=== PATIENT | female | born 1995 | race Caucasian/White ===

== ENCOUNTER 2023-05-29 09:35 | Outpatient (RCR) | payer BC, SELFPAY ==
[2023-05-29 09:20] VITALS: BP 111/72; PULSE 80; RESP 16; TEMP 36.4; O2SAT 98
--- NOTE | 2023-05-29 09:51 | PC.NURSE ---
Patient is here for Celestone, she tolerated this well and denies any concerns or complaints. We will continue to monitor.
[2023-05-30 09:45] VITALS: BP 108/65; PULSE 55; RESP 18; TEMP 36.3; O2SAT 97
--- NOTE | 2023-05-30 09:55 | PC.NURSE ---
Patient is here for second injection of Celestone, she tolerated the first injection well without any side effects. Patient tolerated second injection and denies any concerns. She was discharged home.
== END 2023-06-24 23:59 | disposition home or self-care (01) ==
LOC: INF 09:35
PROVIDERS: Visit Provider Obstetrics & Gynecology
DX: O26.879 Cervical shortening, unspecified trimester (principal)
CPT/HCPCS: 96372; J0702

== ENCOUNTER 2023-06-11 20:34 | Outpatient (REF) | payer BC, SELFPAY | END 2023-06-11 20:35 | disposition home or self-care (01) | LOC: LAB 20:34 | PROVIDERS: Visit Provider Obstetrics & Gynecology | DX: Z34.93 Encounter for supervision of normal pregnancy, unspecified, third trimester (principal) | CPT/HCPCS: 87081 ==

== ENCOUNTER 2023-06-25 03:31 | Inpatient (IN) | payer BC, SELFPAY ==
[2023-06-25] VITALS (23 sets, daily range): BP systolic 95–126; BP diastolic 50–78; PULSE 68–142; RESP 16–18; TEMP 36.5–37.2; O2SAT 96
[2023-06-25 03:50] LABS: Bilirubin Urine NEGATIVE (NEGATIVE); Blood Urine SMALL (NEGATIVE); Clarity Urine CLEAR (CLEAR); Color Urine LT. YELLOW (YELLOW); Glucose Urine UA NEGATIVE (NEGATIVE); Ketones Urine NEGATIVE (NEGATIVE); Leukocyte Esterase Urine MODERATE (NEGATIVE); Nitrite Urine NEGATIVE (NEGATIVE); Protein Urine NEGATIVE (NEG/TRACE); Urobilinogen Urine 0.2 EU/dL (0.2-1.0)
[2023-06-25 03:52] LABS: Urine Microscopic Indicated YES
[2023-06-25 03:56] LABS: Bacteria Urine SMALL #/HPF (NONE SEEN); Cast Seen? NONE SEEN #/LPF (NONE SEEN); Crystals Seen? None Seen #/HPF (None Seen); Mucus Urine NONE SEEN (NONE SEEN); RBC Urine 0-2 #/HPF (0-2); Squamous Epithelial Cell Urine FEW #/LPF (NONE/RARE); Urine Culture Indicated YES
[2023-06-25 05:03] LABS: Amphetamine Screen Urine NEGATIVE (NEGATIVE); Barbiturates Screen Urine NEGATIVE (NEGATIVE); Benzodiazepines Screen Urine NEGATIVE (NEGATIVE); Buprenorphine Screen Urine NEGATIVE (NEGATIVE); Cannabinoid Screen Urine NEGATIVE (NEGATIVE); Cocaine Screen Urine NEGATIVE (NEGATIVE); Methadone Screen Urine NEGATIVE (NEGATIVE); Methamphetamines Screen Urine NEGATIVE (NEGATIVE); Opiate Screen Urine NEGATIVE (NEGATIVE); Oxycodone Screen Urine NEGATIVE (NEGATIVE); Phencyclidine Screen Urine NEGATIVE (NEGATIVE); Tricyclic Antidepressant Urine NEGATIVE (NEGATIVE)
[2023-06-25] MEDS: 0.9 % SODIUM CHLORIDE 1,000 ML 125 ML IV (05:08)
[2023-06-25 05:17] LABS: Hematocrit 36.1 % (36.0-48.0); Mean Corpuscular HGB Conc 33.2 g/dL (29.9-35.2); Mean Corpuscular Hemoglobin 28.2 pg (26.7-34.0); Mean Corpuscular Volume 84.9 fL (81.0-99.0); Mean Platelet Volume 11.3 fL (9.5-13.5); Platelet Count 152 10^3/uL (150-450); Red Blood Count 4.25 10^6/uL (4.20-5.40); Red Cell Distribution Width 14.3 % (11.0-15.0); White Blood Count 13.1 10^3/uL (4.0-11.0)
[2023-06-25] MEDS: LIDOCAINE HCL 1% 200 MG/20 ML MDV INJ (12:22)
[2023-06-25] MEDS: KETOROLAC TROMETHAMINE 30 MG/ML VIAL IVP (12:27)
--- NOTE | 2023-06-25 12:31 | PM.OBPRCVD ---
Procedure Intrapartal events: None Delivery augmentation: rupture of membranes Delivery monitor: external FHT and external uterine Route of delivery: Laceration description: perineal - 1st degree Delivery repair: Vicryl Estimated blood loss (mL): 275 Anesthesia type: None Disposition: floor Delivery date: 06/25/23 Gender: female presentation: vertex Placental delivery description: Spontaneous cord description: 3 Vessels
[2023-06-25] MEDS: IBUPROFEN 600 MG TABLET PO (19:16)
[2023-06-25 20:16] LABS: Glucometer 141 mg/dL (74-106)
[2023-06-26] VITALS (16 sets, daily range): BP systolic 96–102; BP diastolic 56–67; PULSE 90–141; RESP 16–18; TEMP 36.4–38.3; O2SAT 96–97
[2023-06-26] MEDS: IBUPROFEN 600 MG TABLET PO ×4 (02:11→20:37)
[2023-06-26 05:57] LABS: Hematocrit 35.9 % (36.0-48.0); Mean Corpuscular HGB Conc 33.4 g/dL (29.9-35.2); Mean Corpuscular Hemoglobin 28.4 pg (26.7-34.0); Mean Corpuscular Volume 85.1 fL (81.0-99.0); Mean Platelet Volume 10.7 fL (9.5-13.5); Platelet Count 152 10^3/uL (150-450); Red Blood Count 4.22 10^6/uL (4.20-5.40); Red Cell Distribution Width 14.3 % (11.0-15.0); White Blood Count 28.8 10^3/uL (4.0-11.0)
[2023-06-26 06:31] LABS: Segmented Neut Absolute Manual 19.58 10^3/uL (1.4-6.5)
[2023-06-26 06:33] LABS: Band Neutrophils Absolute 4.6 10^3/uL (0.0-0.3)
[2023-06-26 06:34] LABS: Lymphocytes Absolute Manual 1.72 10^3/uL (1.20-3.80); Monocytes Absolute Manual 2.01 10^3/uL (0.30-0.80)
[2023-06-26 06:41] LABS: Metamyelocytes Absolute Manual 0.86
--- NOTE | 2023-06-26 07:19 | W.PC.ACHO ---
Registration Status: ADM IN Primary Language: Guamanian Preferred Language: Guamanian Active Medications 0705- Report given to Richard Mejia RN Generic Name Dose Route Start Last Admin Trade Name Jwq PRN Reason Stop Dose Admin Acetaminophen 650 mg 06/25/23 12:29 Acetaminophen 325 Mg Tablet PO Q6H PRN Mild Pain Al Hydroxide/Mg Hydroxide 2,400 mg 06/25/23 12:29 Magnesium Hydroxide 2,400 Mg/10 Ml Oral.Susp PO Q6H PRN Dyspepsia Benzocaine/Menthol 1 applic 06/25/23 12:29 06/25/23 19:15 Benzocaine/Menthol 85 Gram Bottle TOPICAL 1 applic ONCE PRN Administration Pain Carboprost Tromethamine 250 mcg 06/25/23 04:30 Carboprost Tromethamine 250 Mcg/Ml 1 Ml Vial IM 06/26/23 13:00 Q15M PRN Bleeding Docusate Sodium 100 mg 06/26/23 09:00 Docusate Sodium 100 Mg Capsule PO BID DENA Sodium Chloride 1,000 mls @ 125 mls/hr 06/25/23 04:30 06/25/23 20:31 Sodium Chloride 0.9% 1,000 Ml IV Not Given .Q8H DENA Ibuprofen 600 mg 06/25/23 12:29 06/26/23 02:11 Ibuprofen 600 Mg Tablet PO 600 mg Q6H PRN Administration Moderate Pain Lidocaine 1 ml 06/25/23 12:53 06/25/23 12:22 Lidocaine Hcl 1% 200 Mg/20 Ml Mdv INJ 1 ml DIRECTED PRN Administration Pain Methylergonovine Maleate 0.2 mg 06/25/23 04:30 Methylergonovine Maleate 0.2 Mg/Ml Ampule IM 06/26/23 13:00 ONCE PRN Uterine Contractility/Contract Methylergonovine Maleate 0.2 mg 06/25/23 04:30 Methylergonovine Maleate 0.2 Mg Tablet PO 06/26/23 13:00 Q4H PRN Uterine Contractility/Contract Misoprostol 600 mcg 06/25/23 04:30 Misoprostol 100 Mcg Tablet PO ONCE PRN Uterine Bleeding Misoprostol 800 mcg 06/25/23 04:30 Misoprostol 100 Mcg Tablet SL 06/26/23 13:00 ONCE PRN Uterine Bleeding Misoprostol 1,000 mcg 06/25/23 04:30 Misoprostol 100 Mcg Tablet [place] 06/26/23 13:00 ONCE PRN Uterine Bleeding Naloxone HCl 0.4 mg 06/25/23 12:29 Naloxone Hcl 0.4 Mg/Ml Vial IV ONCE PRN Opiate Reversal Ondansetron HCl 4 mg 06/25/23 04:30 Ondansetron Pf 4 Mg/2 Ml Vial IV Q6H PRN Nausea And Vomiting Ondansetron HCl 4 mg 06/25/23 04:30 Ondansetron 4 Mg Rapdis Tablet SL Q6H PRN Nausea And Vomiting Senna 17.2 mg 06/25/23 20:00 Sennosides 8.6 Mg Tablet PO QHS PRN Constipation Simethicone 80 mg 06/25/23 12:29 Simethicone 80 Mg Tab.Chew PO QID PRN Abdominal Distention Temazepam 15 mg 06/25/23 20:00 Temazepam 15 Mg Capsule PO BEDTIME PRN Sleep Witch Philomena/Glycerin 1 each 06/25/23 12:29 Glycerin/Witch Philomena 1 Each Jar TOPICAL ONCE PRN Pain Diet Category Date Time Status Regular Consistency Diet Diet 06/25/23 Dinner Active Respiratory Lung sounds [Throughout] clear Lung sounds [Throughout] clear Lung sounds [Throughout] clear Pulse Oximetry 96 Pulse Oximetry 96 Oxygen Delivery Method Room Air Oxygen Delivery Method Room Air Oxygen Delivery Method Room Air Oxygen Delivery Method Room Air Cardiology Heart Sounds Strong,Regular Heart Sounds Strong,Regular Heart Sounds Strong Bowels Bowel Pattern No Bowel Movement Bowel Pattern No Bowel Movement Renal Bladder Pattern Continent Bladder Pattern Continent Bladder Pattern Continent Bladder Pattern Continent
--- NOTE | 2023-06-26 07:41 | P.OBPN_ITS ---
OB - PN: Subj Subjective Patient comments: no complaints [place] status: doing well Exam Constitutional Vital Signs, click to edit/add: Last Vital Signs Temp 98.9 F 06/25/23 23:25 Pulse 113 H 06/26/23 07:29 Resp 17 06/26/23 07:35 BP 101/67 06/26/23 07:29 Pulse Ox 96 06/25/23 19:30 O2 Del Method Room Air 06/25/23 23:25 Documenting provider has reviewed patient's vital signs: yes Common normals: no apparent distress Respiratory Common normals: clear to auscultation bilaterally Cardio Common normals: regular rate and regular rhythm GI Common normals: Normal to inspection, nondistended, normoactive bowel sounds present Extremity Common normals: no clubbing, cyanosis or edema and no calf tenderness Results Labs Labs: Short CBC 06/26/23 Range/Units 05:50 WBC 28.8 H (4.0-11.0) 10^3/uL Hgb 12.0 (12.0-16.0) g/dL Hct 35.9 L (36.0-48.0) % Plt Count 152 (150-450) 10^3/uL OB - PN: A/P Assessment and Plan (1) Tachycardia: Plan tachycardia-improving, will obtain ekg for completion Plan - Vaginal Delivery day: 1 Plan: routine care, discharge home and follow up 6 weeks Time Spent with Patient Time: Total time spent is greater than 50% in coordination of care (as documented) at patient's floor/unit and/or counseling patient: Total time spent with greater than 50% in coordination of care (as documented) at patient's floor/unit and/or counseling patient: less than 15 minutes
--- NOTE | 2023-06-26 07:44 | ECG_ITS ---
[facility] Test Date: 2023-06-26 Pat Name: ALYCIA CALVIN Department: Room: 2531 Gender: Female Divorce Attorney: : 1995 Requested By: ANNA HERNANDEZ Order Number: [id number] Reading MD: JOANIE ABBOTT Measurements Intervals [place] Rate: 114 P: 59 CT: 156 QRS: 66 QRSD: 81 T: 50 QT: 288 QTc: 398 Interpretive Statements SINUS TACHYCARDIA POSSIBLE RIGHT VENTRICULAR CONDUCTION DELAY [RSR (QR) IN V1/V2] ABNORMAL RHYTHM ECG No previous ECG available for comparison Electronically Signed On 06-27-2023 5:33:33 EDT by JOANIE ABBOTT
[2023-06-26] MEDS: DOCUSATE SODIUM 100 MG CAPSULE PO ×2 (08:29→20:36)
[2023-06-26] MEDS: AMPICILLIN SODIUM 2,000 MG in 0.9 % SODIUM CHLORIDE 100 ML 200 MG IV (12:27)
[2023-06-26] MEDS: 0.9 % SODIUM CHLORIDE 1,000 ML 125 ML IV ×3 (12:29→20:00)
[2023-06-26] MEDS: CLINDAMYCIN PHOSPHATE/D5W 900 MG/50 ML PIGGYBACK 100 MG IV (13:02)
[2023-06-26] MEDS: ACETAMINOPHEN 325 MG TABLET 650 MG PO (16:15)
[2023-06-26] MEDS: AMPICILLIN SODIUM 1,000 MG in 0.9 % SODIUM CHLORIDE 50 ML 100 MG IV (16:15)
--- NOTE | 2023-06-26 17:31 | W.PC.ACHO ---
Registration Status: ADM IN Primary Language: Indonesian Preferred Language: Indonesian report received from Fermin Wallace, RN Active Medications Generic Name Dose Route Start Last Admin Trade Name Freq PRN Reason Stop Dose Admin Acetaminophen 650 mg 06/25/23 12:29 06/26/23 16:15 Acetaminophen 325 Mg Tablet PO 650 mg Q6H PRN Administration Mild Pain Al Hydroxide/Mg Hydroxide 2,400 mg 06/25/23 12:29 Magnesium Hydroxide 2,400 Mg/10 Ml Oral.Susp PO Q6H PRN Dyspepsia Benzocaine/Menthol 1 applic 06/25/23 12:29 06/25/23 19:15 Benzocaine/Menthol 85 Gram Bottle TOPICAL 1 applic ONCE PRN Administration Pain Docusate Sodium 100 mg 06/26/23 09:00 06/26/23 08:29 Docusate Sodium 100 Mg Capsule PO 100 mg BID DENA Administration Sodium Chloride 1,000 mls @ 125 mls/hr 06/25/23 04:30 06/26/23 12:31 Sodium Chloride 0.9% 1,000 Ml IV 125 mls/hr .Q8H DENA Administration Ampicillin 1,000 mg/ Sodium 50 mls @ 100 mls/hr 06/26/23 16:00 06/26/23 16:15 Chloride IV 100 mls/hr Q4H DENA 100 mls/hr Administration Ibuprofen 600 mg 06/25/23 12:29 06/26/23 14:09 Ibuprofen 600 Mg Tablet PO 600 mg Q6H PRN Administration Moderate Pain Ondansetron HCl 4 mg 06/25/23 04:30 Ondansetron Pf 4 Mg/2 Ml Vial IV Q6H PRN Nausea And Vomiting Ondansetron HCl 4 mg 06/25/23 04:30 Ondansetron 4 Mg Rapdis Tablet SL Q6H PRN Nausea And Vomiting Senna 17.2 mg 06/25/23 20:00 Sennosides 8.6 Mg Tablet PO QHS PRN Constipation Simethicone 80 mg 06/25/23 12:29 Simethicone 80 Mg Tab.Chew PO QID PRN Abdominal Distention Temazepam 15 mg 06/25/23 20:00 Temazepam 15 Mg Capsule PO BEDTIME PRN Sleep Witch Philomena/Glycerin 1 each 06/25/23 12:29 Glycerin/Witch Philomena 1 Each Jar TOPICAL ONCE PRN Pain Consults Category Date Time Status Consult to Hospitalist Routine Cons 06/26/23 Ordered IV Insertion/Site Date of IV Line Insertion [20g 06/26/23 left Distal Hand] IV Insertion Time [20g left 12:15 Distal Hand] Respiratory Lung sounds [Throughout] clear Lung sounds [Throughout] clear Lung sounds [Throughout] clear Lung sounds [Throughout] clear Pulse Oximetry 96 Pulse Oximetry 96 Oxygen Delivery Method Room Air Oxygen Delivery Method Room Air Oxygen Delivery Method Room Air Oxygen Delivery Method Room Air Oxygen Delivery Method Room Air Cardiology Heart Sounds Regular Heart Sounds Strong Heart Sounds Strong,Regular Heart Sounds Strong,Regular Bowels Bowel Pattern No Bowel Movement Bowel Pattern No Bowel Movement Renal Bladder Pattern Continent Bladder Pattern Continent Bladder Pattern Continent
--- NOTE | 2023-06-26 18:35 | PC.NURSE ---
patient denies and aches or chills. patient states, I was just telling my that I am feeling better.
--- NOTE | 2023-06-26 19:03 | PM.PN ---
Progress Note: Subjective Subjective Interval history: Patient without specific complaint although she can feel her heart racing. Had significant elevation in white blood cell count and tachycardia with low-grade fever. Asked to evaluate on consultation Exam Constitutional Vital Signs, click to edit/add: Last Vital Signs Temp 97.8 F 06/26/23 18:36 Pulse 95 H 06/26/23 18:36 Resp 18 06/26/23 18:36 BP 102/60 06/26/23 18:36 Pulse Ox 96 06/25/23 19:30 O2 Del Method Room Air 06/26/23 18:36 Chest Common normals: inspection of chest normal Respiratory Common normals: normal respiratory effort and clear to auscultation bilaterally Cardio Common normals: regular rate and regular rhythm Heart sounds: murmur (2/6) systolic GI Common normals: Normal to inspection, nondistended, normoactive bowel sounds present (Not more tender than would expect) Progress Note: Objective Labs Labs: Short CBC 06/26/23 Range/Units 05:50 WBC 28.8 H (4.0-11.0) 10^3/uL Hgb 12.0 (12.0-16.0) g/dL Hct 35.9 L (36.0-48.0) % Plt Count 152 (150-450) 10^3/uL Progress Note: A&P Assessment and Plan (1) Tachycardia: Assessment and Plan: Tachycardia with fever, significant leukocytosis and bandemia-agree with initial antibiotic choice, will change ampicillin to Rocephin for broader gram-negative coverage, continue clindamycin for anaerobic coverage, check blood cultures x2, IV fluid bolus, and maintenance fluids. Reevaluate in a.m.
[2023-06-26] MEDS: 0.9 % SODIUM CHLORIDE 1,000 ML 999 ML IV (19:08)
--- NOTE | 2023-06-26 19:18 | W.PC.ACHO ---
Registration Status: ADM IN Primary Language: Norwegian Preferred Language: Norwegian report given to Stephanie Ramsey RN Active Medications Generic Name Dose Route Start Last Admin Trade Name Freq PRN Reason Stop Dose Admin Acetaminophen 650 mg 06/25/23 12:29 06/26/23 16:15 Acetaminophen 325 Mg Tablet PO 650 mg Q6H PRN Administration Mild Pain Al Hydroxide/Mg Hydroxide 2,400 mg 06/25/23 12:29 Magnesium Hydroxide 2,400 Mg/10 Ml Oral.Susp PO Q6H PRN Dyspepsia Benzocaine/Menthol 1 applic 06/25/23 12:29 06/25/23 19:15 Benzocaine/Menthol 85 Gram Bottle TOPICAL 1 applic ONCE PRN Administration Pain Docusate Sodium 100 mg 06/26/23 09:00 06/26/23 08:29 Docusate Sodium 100 Mg Capsule PO 100 mg BID DENA Administration Sodium Chloride 1,000 mls @ 125 mls/hr 06/25/23 04:30 06/26/23 12:31 Sodium Chloride 0.9% 1,000 Ml IV 125 mls/hr .Q8H DENA Administration Ceftriaxone Sodium 1,000 mg/ 50 mls @ 100 mls/hr 06/26/23 19:00 Sodium Chloride IV Q24H DENA Clindamycin Phosphate/Dextrose 300 mg in 50 mls @ 100 mls/hr 06/26/23 19:15 Cleocin Phosphate/D5w 300 Mg/50 Ml Piggyback IV Q6H DENA Ibuprofen 600 mg 06/25/23 12:29 06/26/23 14:09 Ibuprofen 600 Mg Tablet PO 600 mg Q6H PRN Administration Moderate Pain Ondansetron HCl 4 mg 06/25/23 04:30 Ondansetron Pf 4 Mg/2 Ml Vial IV Q6H PRN Nausea And Vomiting Ondansetron HCl 4 mg 06/25/23 04:30 Ondansetron 4 Mg Rapdis Tablet SL Q6H PRN Nausea And Vomiting Ondansetron HCl 4 mg 06/26/23 18:58 Ondansetron Pf 4 Mg/2 Ml Vial IV Q4H PRN Nausea Senna 17.2 mg 06/25/23 20:00 Sennosides 8.6 Mg Tablet PO QHS PRN Constipation Simethicone 80 mg 06/25/23 12:29 Simethicone 80 Mg Tab.Chew PO QID PRN Abdominal Distention Temazepam 15 mg 06/25/23 20:00 Temazepam 15 Mg Capsule PO BEDTIME PRN Sleep Witch [place]omena/Glycerin 1 each 06/25/23 12:29 Glycerin/Witch Philomena 1 Each Jar TOPICAL ONCE PRN Pain Consults Category Date Time Status Consult to Hospitalist Routine Cons 06/26/23 Ordered IV Insertion/Site Date of IV Line Insertion [20g 06/26/23 left Distal Hand] IV Insertion Time [20g left 12:15 Distal Hand] Respiratory Lung sounds [Throughout] clear Lung sounds [Throughout] clear Lung sounds [Throughout] clear Lung sounds [Throughout] clear Pulse Oximetry 96 Pulse Oximetry 96 Oxygen Delivery Method Room Air Oxygen Delivery Method Room Air Oxygen Delivery Method Room Air Oxygen Delivery Method Room Air Oxygen Delivery Method Room Air Oxygen Delivery Method Room Air Cardiology Heart Sounds Regular Heart Sounds Strong Heart Sounds Strong,Regular Heart Sounds Strong,Regular Bowels Bowel Pattern No Bowel Movement Bowel Pattern No Bowel Movement Renal Bladder Pattern Continent Bladder Pattern Continent Bladder Pattern Continent
[2023-06-26] MEDS: CLINDAMYCIN PHOSPHATE/D5W 300 MG/50 ML PIGGYBACK 100 MG IV (19:51)
[2023-06-26 20:05] LABS: Basophils Absolute Auto 0.1 10^3/uL (0.0-0.1); Basophils Percent Auto 0.4 % (0.2-2.0); Hematocrit 33.2 % (36.0-48.0); Hemoglobin 10.9 g/dL (12.0-16.0); Immature Granulocytes Abs Auto 0.41 10^3/uL (0.00-0.03); Immature Granulocytes Pct Auto 1.8 % (0.0-0.5); Lymphocytes Absolute Auto 0.8 10^3/uL (1.2-3.8); Lymphocytes Percent Auto 3.7 % (20.5-60.0); Mean Corpuscular HGB Conc 32.8 g/dL (29.9-35.2); Mean Corpuscular Hemoglobin 28.1 pg (26.7-34.0); Mean Corpuscular Volume 85.6 fL (81.0-99.0); Mean Platelet Volume 10.6 fL (9.5-13.5); Monocytes Absolute Auto 0.9 10^3/uL (0.3-0.8); Monocytes Percent Auto 3.9 % (1.7-12.0); Neutrophils Absolute Auto 20.2 10^3/uL (1.4-6.5); Neutrophils Percent Auto 90.2 % (43.0-75.0); Platelet Count 158 10^3/uL (150-450); Red Blood Count 3.88 10^6/uL (4.20-5.40); Red Cell Distribution Width 14.6 % (11.0-15.0); White Blood Count 22.4 10^3/uL (4.0-11.0)
[2023-06-26] MEDS: CEFTRIAXONE 1,000 MG in 0.9 % SODIUM CHLORIDE 50 ML 100 MG IV (20:36)
[2023-06-27 00:20] VITALS: BP 91/61; PULSE 72; RESP 14; TEMP 36.4; O2SAT 100
[2023-06-27] MEDS: IBUPROFEN 600 MG TABLET PO (02:02)
[2023-06-27] MEDS: CLINDAMYCIN PHOSPHATE/D5W 300 MG/50 ML PIGGYBACK 100 MG IV ×2 (02:03→09:05)
[2023-06-27] MEDS: 0.9 % SODIUM CHLORIDE 1,000 ML 125 ML IV (03:54)
[2023-06-27 03:56] VITALS: BP 95/60; PULSE 70; RESP 14; TEMP 36.4; O2SAT 98
[2023-06-27 05:44] LABS: Basophils Percent Auto 0.2 % (0.2-2.0); Eosinophils Absolute Auto 0.1 10^3/uL (0.0-0.7); Eosinophils Percent Auto 0.6 % (0.9-7.0); Hematocrit 32.6 % (36.0-48.0); Hemoglobin 10.4 g/dL (12.0-16.0); Immature Granulocytes Abs Auto 0.25 10^3/uL (0.00-0.03); Immature Granulocytes Pct Auto 1.4 % (0.0-0.5); Lymphocytes Percent Auto 5.5 % (20.5-60.0); Mean Corpuscular HGB Conc 31.9 g/dL (29.9-35.2); Mean Corpuscular Volume 87.6 fL (81.0-99.0); Mean Platelet Volume 10.5 fL (9.5-13.5); Monocytes Percent Auto 5.3 % (1.7-12.0); Neutrophils Absolute Auto 15.8 10^3/uL (1.4-6.5); Platelet Count 137 10^3/uL (150-450); Red Blood Count 3.72 10^6/uL (4.20-5.40); Red Cell Distribution Width 14.6 % (11.0-15.0); White Blood Count 18.2 10^3/uL (4.0-11.0)
[2023-06-27 06:07] LABS: Anion Gap 10.3; BUN Creatinine Ratio 10.9; Calcium 8.3 mg/dL (8.5-10.1); Carbon Dioxide 24.5 mmol/L (21.0-32.0); Chloride 109 mmol/L (98-107); Estimated GFR (African America >60 (>=60); Estimated GFR (Non-African Ame >60 (>=60); Glucose 88 mg/dL (74-106); Potassium 3.8 mmol/L (3.5-5.1); Sodium 140 mmol/L (136-145)
--- NOTE | 2023-06-27 07:43 | PC.NURSE ---
Dr. Membreno hospitalist and and Dr. Em at bedside for assessment
--- NOTE | 2023-06-27 07:44 | W.PC.ACHO ---
Registration Status: ADM IN Primary Language: Greek Preferred Language: Greek report received from Stephanie Ramsey RN Active Medications Generic Name Dose Route Start Last Admin Trade Name Freq PRN Reason Stop Dose Admin Acetaminophen 650 mg 06/25/23 12:29 06/26/23 16:15 Acetaminophen 325 Mg Tablet PO 650 mg Q6H PRN Administration Mild Pain Al Hydroxide/Mg Hydroxide 2,400 mg 06/25/23 12:29 Magnesium Hydroxide 2,400 Mg/10 Ml Oral.Susp PO Q6H PRN Dyspepsia Benzocaine/Menthol 1 applic 06/25/23 12:29 06/25/23 19:15 Benzocaine/Menthol 85 Gram Bottle TOPICAL 1 applic ONCE PRN Administration Pain Docusate Sodium 100 mg 06/26/23 09:00 06/26/23 20:36 Docusate Sodium 100 Mg Capsule PO 100 mg BID DENA Administration Ceftriaxone Sodium 1,000 mg/ 50 mls @ 100 mls/hr 06/26/23 19:00 06/26/23 21:10 Sodium Chloride IV Infused Q24H DENA Infusion Clindamycin Phosphate/Dextrose 300 mg in 50 mls @ 100 mls/hr 06/26/23 20:00 06/27/23 02:35 Cleocin Phosphate/D5w 300 Mg/50 Ml Piggyback IV Infused Q6H DENA Infusion Sodium Chloride 1,000 mls @ 1,000 mls/hr 06/26/23 19:34 Sodium Chloride 0.9% 1,000 Ml IV .Q1H PRN Tachyarrhythmias Sodium Chloride 1,000 mls @ 125 mls/hr 06/26/23 19:35 06/27/23 03:54 Sodium Chloride 0.9% 1,000 Ml IV 125 mls/hr .Q8H DENA Administration Ibuprofen 600 mg 06/25/23 12:29 06/27/23 02:02 Ibuprofen 600 Mg Tablet PO 600 mg Q6H PRN Administration Moderate Pain Multivitamins 1 tab 06/27/23 09:00 Multivitamin Tablet PO QDAY DENA Ondansetron HCl 4 mg 06/25/23 04:30 Ondansetron Pf 4 Mg/2 Ml Vial IV Q6H PRN Nausea And Vomiting Ondansetron HCl 4 mg 06/25/23 04:30 Ondansetron 4 Mg Rapdis Tablet SL Q6H PRN Nausea And Vomiting Ondansetron HCl 4 mg 06/26/23 18:58 Ondansetron Pf 4 Mg/2 Ml Vial IV Q4H PRN Nausea Senna 17.2 mg 06/25/23 20:00 Sennosides 8.6 Mg Tablet PO QHS PRN Constipation Simethicone 80 mg 06/25/23 12:29 Simethicone 80 Mg Tab.Chew PO QID PRN Abdominal Distention Temazepam 15 mg 06/25/23 20:00 Temazepam 15 Mg Capsule PO BEDTIME PRN Sleep Witch Philomena/Glycerin 1 each 06/25/23 12:29 Glycerin/Witch Philomena 1 Each Jar TOPICAL ONCE PRN Pain IV Insertion/Site Date of IV Line Insertion [20g 06/26/23 left Distal Hand] IV Insertion Time [20g left 12:15 Distal Hand] Respiratory Lung sounds [Throughout] clear Lung sounds [Throughout] clear Pulse Oximetry 98 Pulse Oximetry 100 Pulse Oximetry 97 Pulse Oximetry 96 Oxygen Delivery Method Room Air Oxygen Delivery Method Room Air Oxygen Delivery Method Room Air Oxygen Delivery Method Room Air Oxygen Delivery Method Room Air Oxygen Delivery Method Room Air Oxygen Delivery Method Room Air Cardiology Heart Sounds Strong,Regular Heart Sounds Regular Bowels Bowel Pattern No Bowel Movement Renal Bladder Pattern Continent
--- NOTE | 2023-06-27 07:53 | PM.OBPN ---
OB - PN: Subj Subjective Interval history: Patient without specific complaint although she can feel her heart racing. Had significant elevation in white blood cell count and tachycardia with low-grade fever. Asked to evaluate on consultation Patient comments: no complaints infant status: doing well Exam Constitutional Vital Signs, click to edit/add: Last Vital Signs Temp 97.6 F 06/27/23 03:56 Pulse 70 06/27/23 03:56 Resp 14 06/27/23 03:56 BP 95/60 06/27/23 03:56 Pulse Ox 98 06/27/23 03:56 O2 Del Method Room Air 06/27/23 03:56 Documenting provider has reviewed patient's vital signs: yes Common normals: no apparent distress Respiratory Common normals: normal respiratory effort and clear to auscultation bilaterally Cardio Common normals: regular rate and regular rhythm GI Common normals: Normal to inspection, nondistended, normoactive bowel sounds present Extremity Common normals: normal to inspection, no clubbing, cyanosis or edema and no calf tenderness Results Labs Labs: Short CBC 06/26/23 06/27/23 Range/Units 19:59 05:35 WBC 22.4 H 18.2 H (4.0-11.0) 10^3/uL Hgb 10.9 L 10.4 L (12.0-16.0) g/dL Hct 33.2 L 32.6 L (36.0-48.0) % Plt Count 158 137 L (150-450) 10^3/uL BMP 06/27/23 05:35 Sodium 140 Potassium 3.8 Chloride 109 H Carbon Dioxide 24.5 BUN 7.0 Creatinine 0.64 Glucose 88 Calcium 8.3 L OB - PN: A/P Assessment and Plan (1) Tachycardia: Plan - Vaginal Delivery day: 2 Plan: routine care, discharge home and follow up 6 weeks Time Spent with Patient Time: Total time spent is greater than 50% in coordination of care (as documented) at patient's floor/unit and/or counseling patient: Total time spent with greater than 50% in coordination of care (as documented) at patient's floor/unit and/or counseling patient: less than 15 minutes
--- NOTE | 2023-06-27 07:55 | PM.PN ---
Progress Note: Subjective Subjective Interval history: pt looks much improved this morning Exam Constitutional Vital Signs, click to edit/add: Last Vital Signs Temp 97.6 F 06/27/23 03:56 Pulse 70 06/27/23 03:56 Resp 14 06/27/23 03:56 BP 95/60 06/27/23 03:56 Pulse Ox 98 06/27/23 03:56 O2 Del Method Room Air 06/27/23 03:56 Respiratory Common normals: normal respiratory effort Cardio Common normals: regular rate and regular rhythm Heart sounds: murmur (2/6) systolic Progress Note: Objective Labs Labs: Short CBC 06/26/23 06/27/23 Range/Units 19:59 05:35 WBC 22.4 H 18.2 H (4.0-11.0) 10^3/uL Hgb 10.9 L 10.4 L (12.0-16.0) g/dL Hct 33.2 L 32.6 L (36.0-48.0) % Plt Count 158 137 L (150-450) 10^3/uL BMP 06/27/23 05:35 Sodium 140 Potassium 3.8 Chloride 109 H Carbon Dioxide 24.5 BUN 7.0 Creatinine 0.64 Glucose 88 Calcium 8.3 L Progress Note: A&P Assessment and Plan (1) Tachycardia: Assessment and Plan: Tachycardia with fever, significant leukocytosis and bandemia, relative hypotensions- -much improved, white blood cell count not normal but much improved. Discussed case with obstetrics and agree with okay for discharge to home with oral antibiotics
[2023-06-27 09:03] VITALS: BP 97/58; PULSE 75
[2023-06-27 09:04] VITALS: BP 97/58; PULSE 75; RESP 18; TEMP 36.4
[2023-06-27] MEDS: DOCUSATE SODIUM 100 MG CAPSULE PO (09:05)
== END 2023-06-27 11:17 | disposition home or self-care (01) | DRG 806 ==
PROVIDERS: Family Medicine; Admitting Provider Obstetrics & Gynecology; Visit Provider Obstetrics & Gynecology
DX: O44.43 Low lying placenta NOS or without hemorrhage, third trimester (principal); O26.873 Cervical shortening, third trimester; Z37.0 Single live birth; O86.4 Pyrexia of unknown origin following delivery; O70.0 First degree perineal laceration during delivery; O99.893 Other specified diseases and conditions complicating puerperium; R00.0 Tachycardia, unspecified; D72.825 Bandemia; Z3A.38 38 weeks gestation of pregnancy
CPT/HCPCS: 36415; 59050; 59410; 80048; 80307; 81001; 81003; 85025; 85027; 86850; 86900; 86901; 87040; 87086; 87150; 93005; 96365; 96366; 96367; 96375; 96376

== ENCOUNTER 2024-01-20 21:24 | Outpatient (REF) | payer BC, SELFPAY ==
[2024-01-26 13:07] LABS: Age Gdln ACOG Testing Note (.); IGP, rfx Aptima HPV ASCU Note (.)
== END 2024-01-20 21:25 | disposition home or self-care (01) ==
LOC: LAB 21:24
PROVIDERS: Visit Provider Obstetrics & Gynecology
DX: Z01.419 Encounter for gynecological examination (general) (routine) without abnormal findings (principal)
CPT/HCPCS: G0145